=== PATIENT | female | born 1965 | race Caucasian/White ===

== ENCOUNTER → 2023-07-31 10:24 | Outpatient (CLI) | payer MEDICARE, MEDICAID, SELFPAY ==
--- NOTE | 2023-07-31 11:00 | EKG_ITS ---
[address] [id number] [address] [address] Test Date: 2023-07-31 Pat Name: Alondra Rowell Department: [facility] Room: Gender: Female [employer]: : 1965 Requested By: Order Number: [id number] Reading MD: Salvador Daugherty Measurements Intervals Onward Rate: 90 P: 80 NV: 170 QRS: 75 QRSD: 94 T: 52 QT: 342 QTc: 418 Interpretive Statements Normal sinus rhythm Electronically Signed On 08-01-2023 16:16:44 PDT by Salvador Daugherty
[2023-07-31 11:48] LABS: Add Manual Diff / Slide Review NO; Basophils Absolute Auto 100 /uL (0-100); Eosinophils Absolute Auto 300 /uL (0-450); Eosinophils Percent Auto 5.8 % (2-4); Hematocrit 35.1 % (36-46); Hemoglobin 11.8 g/dL (12.0-16.0); Lymphocytes Absolute Auto 1800 /uL (1100-4500); Lymphocytes Percent Auto 35.3 % (25-40); Mean Corpuscular HGB Conc 33.7 % (30-36); Mean Corpuscular Hemoglobin 30.2 PG (26-34); Mean Corpuscular Volume 89.7 fL (80-100); Monocytes Absolute Auto 500 /uL (0-900); Monocytes Percent Auto 10.2 % (3-14); Neutrophils Absolute Auto 2400 /uL (1500-7000); Neutrophils Percent Auto 47.7 % (50-75); Platelet Count 234 X10^3/uL (150-400); Red Blood Cell Count 3.91 X10^6/uL (4.0-5.2); Red Cell Distribution Width 13.8 % (11.6-14.8); White Blood Cell Count 5.1 X10^3/uL (4.5-11.0)
[2023-07-31 12:13] LABS: Appearance Urine UA CLEAR; Bilirubin Urine UA NEGATIVE (NEGATIVE); Color Urine UA YELLOW; Glucose Urine UA NEGATIVE (Negative); Ketones Urine UA NEGATIVE (NEGATIVE); Leukocyte Esterase Urine UA NEGATIVE (NEGATIVE); Nitrite Urine UA NEGATIVE (Negative); Occult Blood Urine UA NEGATIVE (Negative); Protein Urine UA NEGATIVE (Negative); Urobilinogen Urine UA 0.2 E.U./dL (0.2)
[2023-07-31 12:16] LABS: pH Urine UA 6.5 (4.5-8.0)
[2023-07-31 12:18] LABS: Hemoglobin A1C% w Est Avg Glu 5.7 % (4.0-6.0)
[2023-07-31 12:20] LABS: BUN Creatinine Ratio 31.1 (6-22); Blood Urea Nitrogen 19 mg/dL (7-17); Calcium 8.8 mg/dL (8.4-10.2); Carbon Dioxide 27 mmol/L (22-32); Chloride 108 mmol/L (98-107); Estimated Glomerular Filt Rate > 60 mL/min (>60); Glucose 92 mg/dL (70-100); HEMOLYSIS < 15 (0-50); Potassium 4.3 mmol/L (3.4-5.1); Sodium 141 mmol/L (137-145)
[2023-07-31 12:23] LABS: Bacteria Urine None Seen; Culture Indicated Urine Cult Not Indicated; RBC Urine None Seen (0-5/HPF); Squamous Epithelial Cell Urine 1-5 /HPF (0-5/HPF); Urine Volume 10mL (spun); WBC Urine None Seen (0-5/HPF)
== END ==
PROVIDERS: PCP Family Medicine; Referring Provider Orthopaedic Surgery; Visit Provider Orthopaedic Surgery
DX: Z01.812 Encounter for preprocedural laboratory examination (principal); Z01.818 Encounter for other preprocedural examination; R73.9 Hyperglycemia, unspecified; N39.0 Urinary tract infection, site not specified
CPT/HCPCS: 80048; 81001; 83036; 85025; 93005

== ENCOUNTER 2023-09-11 07:22 | Day surgery (SDC) | payer MEDICARE, MEDICAID, SELFPAY ==
[2023-09-02 12:48] VITALS: BMI 28.0
[2023-09-11] VITALS (10 sets, daily range): BP systolic 115–154; BP diastolic 56–90; PULSE 85–107; RESP 12–16; TEMP 35.7–36.6; O2SAT 94–100; BMI 28.0; BMI 28.5
--- NOTE | 2023-09-11 | DI.RAD.S_ITS ---
PROCEDURE: XR HIP W PEL IF DONE RT 2V INDICATIONS: RIGHT HIP ROWDY ANTERIOR TECHNIQUE: AP pelvis with lateral view(s) of the right hip(s). COMPARISON: None. FINDINGS: Right hip arthroplasty projects in the expected location. IMPRESSION: Intraoperative guidance provided. Dictated by: Delano Preston M.D. on 09/11/2023 at 17:48 Approved by: Delano Preston M.D. on 09/11/2023 at 17:49
--- NOTE | 2023-09-11 06:00 | DI.RAD.S_ITS ---
PROCEDURE: XR HIP W PEL IF DONE RT 2V INDICATIONS: [place] TECHNIQUE: AP and lateral views of the hip were acquired. COMPARISON: [facility], , XR HIP W PEL IF DONE RT 2V, 09/11/2023, 11:54. FINDINGS: Status post right hip total arthroplasty without hardware complication in expected alignment. No fracture or dislocation. Mild left hip osteoarthritis. Expected postsurgical edema and emphysema around the right hip. IMPRESSION: Status post right hip total arthroplasty without hardware complication. Dictated by: Da Fontenot M.D. on 09/11/2023 at 16:49 Approved by: Da Fontenot M.D. on 09/11/2023 at 16:50
--- NOTE | 2023-09-11 08:08 | PM.PREOP ---
Pre-operative Note Interval Note History & Physical reviewed/Exam performed by Physician: Yes Changes to H&P: No
--- NOTE | 2023-09-11 08:09 | P.OP_ITS ---
Operative Date/Time/Diagnoses Date of procedure: 09/11/23 Time of procedure: 11:20 Pre-op diagnosis: Severe right hip OA Post-op diagnosis: same Procedure & Clinicians Procedure: Right total hip arthroplasty anterior approach Same procedure as scheduled: Yes Indications: The patient has had progressively worsening right hip pain with radiographic changes consistent with arthritis. Non-operative management has failed and the patient has requested total hip replacement. The risks, benefits and alternatives to surgery were discussed with the patient prior to proceeding. Risks discussed included, but were not limited to, failure to relieve pain, leg length discrepancy, dislocation, stiffness, infection, nerve damage, deep venous thrombosis, pulmonary embolism, stroke, coma, heart attack, permanent paralysis and , as well as the potential need for eventual revision of the prosthetic. Surgeon: Nicole Eisenberg Paper Production Engineer: Lucius Sahni Anesthesia Type: Spinal Operative Notes Findings: Severe right hip OA, adequate bone, adequate stability Closure Type: primary Specimen(s): none sent Prosthetic devices, grafts, tissues, transplants, or devices: Eisenberg and nephew polar size 1 stem, 52 mm R3 cup, neutral poly liner,one 6.5 mm screw, 36 x -3 Oxinium femoral head Estimated Blood Loss (mL): 250 Blood products transfused: none Procedure in detail: The patient was brought to the operating room. Patient was carefully positioned in the supine position. Time-out was performed and antibiotics were given. Anesthesia was induced. She was positioned in the on the table in order to allow hyperextension of the hip. The right lower extremity was prepped and draped in a standard sterile fashion. An anterior right hip incision was made 1 fingerbreadth lateral to the anterior superior iliac spine and extended distally towards the greater trochanter. Dissection was carried out through skin and subcutaneous tissues. Superficial hemostasis was achieved. The fascia over the tensor fascia gita was defined and incised with a knife. Two Allis clamps were used to grasp the fascia. Tensor fascia gita was retracted laterally. A gelpi retractor was placed. Dissection was carried out down along the neck. The circumflex vessels were carefully identified and cauterized with the Aqua Mantis. A PA was used during the procedure and was essential for intraoperative retraction and safe implantation of the components. There was good visualization of the femoral neck. A Cobra was placed superior to the neck and the gluteus fibers were carefully stripped from that superior aspect of the capsule. A 2nd retractor was placed along the inferior aspect of the neck. The rectus insertion along the capsule was partially released. A 3rd retractor that was then gently placed over the rim of the acetabulum under the rectus. Capsule was carefully incised and released from the intertrochanteric line circumferentially superior to the mid sagittal line and inferiorly to the mid sagittal line until the lesser trochanter was palpable. A tag stitch was placed both in the superior and inferior limb of the capsular insertion. Along the acetabulum capsule was also released up to the mid sagittal 12:00 position. A portion of the labrum was resected. A saw was used to perform an osteotomy at the level of the intertrochanteric line and the junction of the superior femoral neck leaving approximately 1 finger breath of residual inferior neck above the lesser trochanter. A 2nd cut was made along the femoral neck at the base of the head and a napkin ring of neck was removed. Corkscrew was placed in the femoral head and the head was removed without difficulty. Retractors were then repositioned around the acetabulum. Residual labrum was resected and additional osteophytes were removed. A reamer that was 4 mm below the templated size was placed by hand in the acetabulum and it was reamed to centralize the acetabulum. It was then reamed up to 2 under the templated size and fluoroscopy was brought in to confirm the position of the reaming and depth of reaming. I reamed 1 under the anticipated size and touched the rim with line to line reaming. A trial cup was placed and noted that it was appropriately sized and fluoroscopy confirmed position and depth. The component was open and inserted without difficulty fluoroscopic imaging was used to confirm that the cup had been adequately seated and was well positioned. It was further stabilized with a single screw. Neutral poly liner was placed. The cup was tested and noted to be stable. Attention was then directed to the femur. The femur was gently hyperextended additional capsular release was performed as needed in order to allow adequate visualization of the proximal femur with elevation of the femur. Patient was placed in a hyperextended slightly adducted position with maximum external rotation. Box osteotome was used to check for any residual neck as well as sclerotic bone along the trochanter. [place] pepper was placed in the femur. Additional broaching was performed. Canal finder was used to determine the alignment of the canal and position. Size 1 broach was placed. The canal was then appropriately broached up to the templated size as long as there was adequate stability of the broach and serial advancement of the broach without excessive impingement. Specific attention was directed at avoiding varus attempting to direct the distal aspect of the broach more anteriorly and avoiding excessive anteversion. Trial reduction showed acceptable range of motion, good stability, no posterior impingement, sabianism of leg length and appropriate lateral shuck. I also hyperflexed the hip and checked that there was no impingement anteriorly and there was good stability with flexion, adduction and internal rotation. Marcaine and Exparel were injected. The stem was placed without difficulty. Repeat trial reduction and x-ray showed acceptable overall position, length, and no evidence of the femoral fracture. Final head was placed. Wound was meticulously irrigated with normal saline. The hip was reduced and additional Exparel and Marcaine were injected. The capsule was closed with interrupted nonabsorbable sutures. The fascia of the tensor was closed with interrupted and running Vicryl. No drain was placed. Any tensor fascia gita muscle that appeared to be contused or injured which was a minimal amount was carefully resected. Capsule around the tensor was injected with Exparel and Marcaine. The skin was closed with barbed stitches for the subcutaneous tissue and skin. We also used surgical glue. The wound was dressed sterilely. Brief Betadine soak was also used and was meticulously irrigated with normal saline. Patient was transferred to recovery room in satisfactory condition. Complications: none Post-operative Condition: stable Disposition: Acute Care Plan for aftercare: The patient will be maintained on a standard total hip replacement protocol with weight bearing as tolerated and anterior hip precautions. The patient will receive Aspirin and sequential compression devices for DVT prophylaxis. The patient will be discharged home when safe for the home environment.
[2023-09-11] MEDS: MELOXICAM 7.5 MG TABLET 15 MG PO (08:28)
[2023-09-11] MEDS: ACETAMINOPHEN 325 MG TABLET 975 MG PO (08:29)
[2023-09-11] MEDS: VANCOMYCIN 1,000 MG/200 ML PIGGYBACK 200 MG IV (09:39)
[2023-09-11] MEDS: CEFAZOLIN 2 GM/100 ML PREMIX 100 ML IV (10:36)
[2023-09-11] MEDS: TRANEXAMIC ACID 1,000 MG VIAL 2000 MG INJ ×2 (10:59→13:01)
[2023-09-11] MEDS: BUPIVACAINE 0.25% (PF) 60 ML, EPINEPHrine 0.3 MG INJ (11:23)
[2023-09-11] MEDS: BUPIVACAINE LIPOSOME 266 MG/20 ML VIAL INJ (11:24)
[2023-09-11] MEDS: LACTATED RINGERS 1,000 ML 42 ML IV (12:59)
--- NOTE | 2023-09-11 15:55 | PT.IPTN ---
Current Diagnoses Unilateral primary osteoarthritis, right hip (09/11/23) Surgery Performed Operation Date: 09/11/23 09:45 Actual Procedures p Total Hip Arthroplasty/Anterior Approach(Right) - Nicole Eisenberg MD Physical Therapy Treatment Note M2 PT-IP Current Condition Start: 09/11/23 16:24 Freq: NEEDED Status: Discharge Protocol: Document 09/11/23 16:25 KJ (Rec: 09/11/23 16:35 KJ [id number]) Physical Therapy Current Condition Current Condition Evaluation Date 09/11/23 Treatment Diagnosis Impaired mobility Onset Date 09/11/23 M3 PT-IP Subjective Start: 09/11/23 16:24 Freq: NEEDED Status: Discharge Protocol: Document 09/12/23 08:18 TS (Rec: 09/12/23 08:29 TS [id number]) Subjective Physical Therapy Visit Type Type Treatment Note Visit Start Time 15:55 Visit Stop Time 16:20 Number of OFF TRACK BETTING MANAGER Visits 1 Physical Therapy Visit Comments Patient Comments Pt found resting in bed, is agreeable to PT. M4 PT-IP Mobility and Gait Start: 09/11/23 16:24 Freq: NEEDED Status: Discharge Protocol: Document 09/12/23 08:18 TS (Rec: 09/12/23 08:29 TS [id number]) PT-Bed Mobility Assessment Supine to Sit Supine to Sit Standby Assistance Sit to Supine Sit to Supine Standby Assistance Scooting Scooting to Edge of Bed Standby Assistance PT-Transfer Assessment Sit to and From Stand Sit to and from Stand Standby Assistance Equipment Transfer Assistive Device Gait Belt,Front Wheeled Walker Orthotic/Prosthetic Devices or Brace: No Comments Mobility Comments Pt performed all bed mobility SBA. She amblated in hallway ~ 100'SBA with FWW. She performed steps x3 with B handrails, cues for step sequencing. She ambulated back to room, was left in bed, all needs met. Gait Assessment Gait Gait Assistance Required: Contact Guard Assist Distance (Feet) 100 Able to Maintain Weight Bearing Status Yes During Gait Assistive Devices Assistive Device Gait Belt,Front Wheeled Walker Orthotic/Prosthetic Devices or Brace: No Comments Gait Comments See mobility comments Stair Climbing Assessment Evaluation Level of Assist On Stairs Standby Assistance Devices Stair Climbing Assistive Devices Left Railing,Right Railing Technique/Endurance Stair Climbing Direction Ascend and Descend Stair Climbing Technique Step Over Step Number of Steps Climbed 3 PT-Balance Assessment Sitting Balance and Reactions Static Sitting Balance Ability Normal Dynamic Sitting Balance Ability Normal Standing Balance and Reactions Static Standing Balance Ability Good Dynamic Standing Balance Ability Good Device Used fww M5 PT-IP Objective Assessments Start: 09/11/23 16:24 Freq: NEEDED Status: Discharge Protocol: Document 09/11/23 16:25 KJ (Rec: 09/11/23 16:35 KJ [id number]) Orientation Orientation/Cognition Level of Alertness Alert Orientation Name,Age,Birthday,Situation Language Function Ability No Deficits Noted Safety Awareness Understands Safety Issues Memory Description No Deficits Noted Gross Range of Motion Upper Extremity ROM Assessment Within Functional Limits Lower Extremity ROM Assessment Right Impaired Strength Upper Extremity Strength Assessment Within Functional Limits Lower Extremity Strength Assessment Right Impaired M6 PT-IP Treatment Start: 09/11/23 16:24 Freq: NEEDED Status: Discharge Protocol: Document 09/12/23 08:18 TS (Rec: 09/12/23 08:29 TS [id number]) Physical Therapy Treatment Education Education Provided Precautions,Weight Bearing Status,Post-Op Packet,Safety M7 PT-IP Assessment and Plan Start: 09/11/23 16:24 Freq: NEEDED Status: Discharge Protocol: Document 09/12/23 08:18 TS (Rec: 09/12/23 08:29 TS [id number]) PT Summary Assessment and Plan Potential Rehabilitation Potential Excellent Summary Impairments Sensation,Activity Tolerance Progress Towards Goals Progressing Toward Goals Assessment Summary Pt is doing well with her mobility. She is SBA for bed mobility and ambulates with FWW SBA. She progressed to stairs SBA with step over step . PT is recommending home with assist. Goals Bed Mobility Goal Independent Transfer Goal Independent Gait Goal Independent Gait Distance 150' Days to Meet Goals 3 Frequency of Treatment Frequency Of Treatment Once a Day Treatment Plan Physical Therapy Treatment Plan Bed Mobility Training,Transfer Training,Gait Training, Therapeutic Exercise Other Recommendations and Next Treatment Stairs Focus Precautions Anterior Hip Precautions No Hip Extension,No Hip External Rotation Weight Bearing Status Weight Bearing Status Weight Bear as Tolerated Recommendations To Nursing Amount of Assist Needed Standby Assistance Discharge Recommendations PT Discharge Recommendations Home with Assistance Transportation Needs at Discharge Private Vehicle
--- NOTE | 2023-09-11 16:36 | PT.IIE ---
Current Diagnoses Unilateral primary osteoarthritis, right hip (09/11/23) Surgery Performed Operation Date: 09/11/23 09:45 Actual Procedures p Total Hip Arthroplasty/Anterior Approach(Right) - Nicole Eisenberg MD Surgical History (Last Updated 09/02/23 @ 13:29 by Tuyet Rogers, RN) History of History of carpal tunnel surgery of right wrist History of hysterectomy (2018) History of tonsillectomy and adenoidectomy Hx of exploratory laparotomy Hx of left knee surgery Hx of right knee surgery Hx of shoulder surgery Hx of tubal ligation Medical History (Last Updated 09/02/23 @ 13:29 by Tuyet Rogers, RN) Easy bruisability Fibromyalgia Hearing loss History of COVID-19 (~2020) History of seizure HLD (hyperlipidemia) Osteoarthritis PTSD (post-traumatic stress disorder) Radiculopathy Raynaud's disease Physical Therapy Inpatient Evaluation/Re-Eval M1 PT/OT-IP Prior Functional Status Start: 09/11/23 16:24 Freq: NEEDED Status: Active Protocol: Document 09/11/23 16:25 KJ (Rec: 09/11/23 16:35 KJ [id number]) Medical Review Prior Functional Status Mobility and Gait Ambulated without assistive device on all surfaces. Indep in mobility and self care. Social History Household Members family,friend(s) Living Arrangements House Number of Floors (Floors) Two Floors Number of Stairs To Enter/Railing? 8 + 8 to second floor Home Environment High Toilet,Tub/Shower Home Equipment Front Wheel Walker,Four Wheel Walker,Straight Cane M2 PT-IP Current Condition Start: 09/11/23 16:24 Freq: NEEDED Status: Active Protocol: Document 09/11/23 16:25 KJ (Rec: 09/11/23 16:35 KJ [id number]) Physical Therapy Current Condition Current Condition Evaluation Date 09/11/23 Treatment Diagnosis Impaired mobility Onset Date 09/11/23 M3 PT-IP Subjective Start: 09/11/23 16:24 Freq: NEEDED Status: Active Protocol: Document 09/11/23 16:25 KJ (Rec: 09/11/23 16:35 KJ [id number]) Subjective Physical Therapy Visit Type Type Initial Evaluation Visit Start Time 15:04 Visit Stop Time 15:34 Physical Therapy Visit Comments Patient Comments Pt is very active, very indep. 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 Patient Goals Go home and heal Therapy Pain Assessment Pain When Pain Assessed At Rest Pain Present Pain Present Denied Pain Location Hip Pain Management Techniques Re-positioning M4 PT-IP Mobility and Gait Start: 09/11/23 16:24 Freq: NEEDED Status: Active Protocol: Document 09/11/23 16:25 KJ (Rec: 09/11/23 16:35 KJ [id number]) PT-Bed Mobility Assessment Supine to Sit Supine to Sit Standby Assistance Sit to Supine Sit to Supine Minimal Assistance Scooting Scooting to Edge of Bed Standby Assistance Scooting Up and Down in Bed Standby Assistance PT-Transfer Assessment Sit to and From Stand Sit to and from Stand Contact Guard Assistance Equipment Transfer Assistive Device Gait Belt,Front Wheeled Walker Orthotic/Prosthetic Devices or Brace: No Transfers Transfer Destination Chair Transfer Technique Stand Pivot Transfer Ability Level of Assist Contact Guard Assistance Gait Assessment Gait Gait Assistance Required: Contact Guard Assist Distance (Feet) 40 Able to Maintain Weight Bearing Status Yes During Gait Assistive Devices Assistive Device Gait Belt,Front Wheeled Walker Orthotic/Prosthetic Devices or Brace: No Comments Gait Comments numbness in R leg described as dental numbness limits mobility PT-Balance Assessment Sitting Balance and Reactions Static Sitting Balance Ability Normal Dynamic Sitting Balance Ability Normal Standing Balance and Reactions Static Standing Balance Ability Good Dynamic Standing Balance Ability Good Device Used fww M5 PT-IP Objective Assessments Start: 09/11/23 16:24 Freq: NEEDED Status: Active Protocol: Document 09/11/23 16:25 KJ (Rec: 09/11/23 16:35 KJ [id number]) Orientation Orientation/Cognition Level of Alertness Alert Orientation Name,Age,Birthday,Situation Language Function Ability No Deficits Noted Safety Awareness Understands Safety Issues Memory Description No Deficits Noted Gross Range of Motion Upper Extremity ROM Assessment Within Functional Limits Lower Extremity ROM Assessment Right Impaired Strength Upper Extremity Strength Assessment Within Functional Limits Lower Extremity Strength Assessment Right Impaired M6 PT-IP Treatment Start: 09/11/23 16:24 Freq: NEEDED Status: Active Protocol: Document 09/11/23 16:25 KJ (Rec: 09/11/23 16:35 KJ [id number]) Physical Therapy Treatment Exercises Exercises Ankle Pumps,Gluteal Sets,Quad Sets,Short Arc Quads Education Education Provided Precautions,Weight Bearing Status,Post-Op Packet,Safety M7 PT-IP Assessment and Plan Start: 09/11/23 16:24 Freq: NEEDED Status: Active Protocol: Document 09/11/23 16:25 KJ (Rec: 09/11/23 16:35 KJ [id number]) PT Summary Assessment and Plan Potential Rehabilitation Potential Excellent Status of Condition at Evaluation Stable Summary Impairments Sensation,Activity Tolerance Progress Towards Goals Progressing Toward Goals Assessment Summary mobilized well, limited by numbness in the RLE Goals Bed Mobility Goal Independent Transfer Goal Independent Gait Goal Independent Gait Distance 150' Days to Meet Goals 3 Frequency of Treatment Frequency Of Treatment Once a Day Treatment Plan Physical Therapy Treatment Plan Bed Mobility Training,Transfer Training,Gait Training, Therapeutic Exercise Other Recommendations and Next Treatment Stairs Focus Precautions Anterior Hip Precautions No Hip Extension,No Hip External Rotation Weight Bearing Status Weight Bearing Status Weight Bear as Tolerated Recommendations To Nursing Amount of Assist Needed Standby Assistance Discharge Recommendations PT Discharge Recommendations Home with Assistance Transportation Needs at Discharge Private Vehicle
== END 2023-09-11 18:42 | disposition home or self-care (01) ==
LOC: OR 07:23 → AC 07:23
PROVIDERS: PCP Family Medicine; Referring Provider Orthopaedic Surgery; Visit Provider Orthopaedic Surgery
PROC: (CPT 27130; principal; 2023-09-11 09:45)
DX: M16.11 Unilateral primary osteoarthritis, right hip (principal); M25.751 Osteophyte, right hip
CPT/HCPCS: 27130; 73502; 76000; 97110; 97116; 97161; 97530; C1776; C9290; J0171; J0690; J1100; J1170; J2405; J2704; J3010